=== PATIENT | female | born 1985 | race Caucasian/White ===

== ENCOUNTER 2020-04-20 07:44 | Emergency (ER) | payer SELFPAY ==
[~2020-04-20] VITALS: Ht 152.4 cm; Wt 72.7 kg
[2020-04-20 07:49] VITALS: Ht 152.4 cm; Wt 72.7 kg
[2020-04-20 08:36] LABS: HEMATOCRIT 42.1 % (36.0-48.0); HEMOGLOBIN 14.4 g/dL (12-16); LYMPHOCYTES 34.9 % (15-50); MCH 30.3 pg (26.0-34.0); MCHC 34.2 g/dL (31.0-37.0); MCV 88.4 fL (80.0-100.0); MEAN PLATELET VOLUME 10.1 fL (7.4-10.4); PLATELET COUNT 176 10x3/uL (130-400); RBC 4.76 10x6/uL (4.00-5.40); RDW 12.8 % (11.5-14.5); WBC 4.3 10x3/uL (4.8-10.8)
[2020-04-20 08:49] LABS: ANION GAP 14.1 mmol/L (8-16); CALCIUM 8.9 mg/dL (8.5-10.1); CARBON DIOXIDE 24.3 mmol/L (21.0-32.0); POTASSIUM - SERUM 3.4 mmol/L (3.5-5.1)
[2020-04-20 08:56] LABS: ALBUMIN 3.6 g/dL (3.4-5.0); BILIRUBIN - TOTAL 0.93 mg/dL (0.2-1.3); PROTEIN - SERUM 6.8 g/dL (6.4-8.2)
[2020-04-20 11:44] LABS: HCG URINE NEGATIVE (NEGATIVE)
[2020-04-20 11:52] LABS: BILIRUBIN NEGATIVE (NEGATIVE); KETONE LARGE mg/dL (NEGATIVE); NITRITE NEGATIVE (NEGATIVE)
[2020-04-20 11:53] LABS: BACTERIA MODERATE HPF (NONE SEEN); SQUAMOUS EPITHELIAL 0-5 HPF (0-4); WHITE CELLS - URINE 0-5 HPF (0-4)
[2020-04-20 12:55] VITALS: BP 104/48
== END 2020-04-20 12:55 | disposition home or self-care (01) ==
LOC: D.ER 07:44
PROVIDERS: Emergency Medicine
DX: K59.01 Slow transit constipation (principal); K56.41 Fecal impaction